=== PATIENT | male | born 1940 | race Caucasian/White ===

== ENCOUNTER → 2017-01-12 | Outpatient (CLI) | payer MEDICARE, MEDICAID ==
[~2017-01-12] MED LIST: ALBUTEROL SULFATE 2.5 MG/0.5 ML INH NEB SOLN INH ONE; ASPI81TA85 PO; D5W 1,000 ML IV SCH; EPINEPHrine 1MG/10ML SYRINGE 1.5IN As Ordered ONE; FLOM5CAP PO; HYDR-3719 PO; LIDOCAINE 1% MDV 20ML VIAL As Ordered ONE; LIDOCAINE 4% INJ 5 ML AMP As Ordered ONE; LIDOCAINE 4% INJ 5 ML AMP INH ONE; LIDOCAINE VISCOUS 2% SOLN 15ML UDC As Ordered ONE; LOPR1TAB6 PO; MIDAZOLAM INJ 2 MG/2 ML VIAL (J2250) As Ordered ONE; MIDO5TA PO; NEUR300C PO; OMEP40CA2 PO; TRAZO50TA FT; XANA0.5T PO; fentaNYL 100 MCG/2 ML INJECTION (J3010) As Ordered ONE
--- NOTE | 2017-01-12 08:50 | RO ---
DATE OF PROCEDURE: 01/12/2017 PREOPERATIVE DIAGNOSIS: Abnormal PET CT, adenopathy. POSTOPERATIVE DIAGNOSIS: Abnormal PET CT, adenopathy. PROCEDURE: Bronchoscopy with micro and cytology brushing, endobronchial biopsy, and endobronchial ultrasound with fine-needle aspiration. SURGEON: Dr. Romario Zhu SPORTS PHYSICIAN: None. ANESTHESIA: Versed 12 mg IV, fentanyl 75 mg IV, lidocaine 325 mg topical. FINDINGS: Abnormal left mainstem with enlarged subcarinal node. DESCRIPTION OF PROCEDURE: After informed consent was reviewed in the preoperative area, the patient was brought back to the outpatient procedure suite. A time-out was performed with two patient identifiers, identifying correct site and correct procedure. The patient was anesthetized with a Xylocaine Neb. This was followed by a spray of Cetacaine into the laryngeal opening. After sedation was adequate, the bronchoscope was advanced into the airway with anesthetization of the airways with 1% lidocaine. The trachea was midline. The wagner was fairly splayed. There was an obvious abnormal left mainstem with a large amount of what appeared to be inflamed granulation tissue. I could not see the suture line and the inflamed tissue approached the wagner on the left. The right mainstem bronchus was normal. RB 1-10 was normal and without endobronchial lesions except for some banding and pitting. The bronchoscope was then placed in the left mainstem and a cytology brush was performed. This was followed by a micro brush. I then performed endobronchial biopsies. After endobronchial biopsies were performed, the endobronchial ultrasound was then inserted into the left mainstem pointing towards the wagner. There was a mass-like lesion there and therefore samples were taken under ultrasound. After adequate core sampling was performed, the endobronchial ultrasound was then removed. Hemostasis was then assured with repeat bronchoscopy. There were no observed complications. A post chest x-ray is pending. [facility]
[2017-01-12 09:10] VITALS: BP 135/71
--- NOTE | 2017-01-12 09:17 | REP ---
Clinical: Status post bronchoscopy. Comparison: None. Findings: There is elevation of the left hemidiaphragm and complete opacification of the left hemithorax with underlying postsurgical changes noted. These findings may represent chronic change. The right hemithorax is well-aerated and clear. No obvious pneumothorax. No obvious right pleural effusion. Skeletal structures intact. Impression: Likely chronic postsurgical changes involving the left hemithorax ipsilateral mediastinal shift. Right hemithorax is well-aerated and clear. Signed by Jayme Dinero MD 01/12/2017 09:09 A
== END | disposition home or self-care (01) ==
LOC: M OPP 06:54
PROVIDERS: ATTEND Internal Medicine Pulmonary Disease
DX: R59.0 Localized enlarged lymph nodes (principal); Z85.118 Personal history of other malignant neoplasm of bronchus and lung; C32.0 Malignant neoplasm of glottis; I10 Essential (primary) hypertension; N40.0 Benign prostatic hyperplasia without lower urinary tract symptoms; K21.9 Gastro-esophageal reflux disease without esophagitis; R13.19 Other dysphagia; J44.9 Chronic obstructive pulmonary disease, unspecified; G57.91 Unspecified mononeuropathy of right lower limb; Z96.3 Presence of artificial larynx; Z87.891 Personal history of nicotine dependence; Z79.899 Other long term (current) drug therapy
CPT/HCPCS: 31623; 31652; 71010; 87071; 87077; 87186; 88104; 88172; 88173; 88305; 88313; 94640; 94760; J2250; J3010

== ENCOUNTER → 2017-05-05 | Outpatient (CLI) | payer MEDICARE, MEDICAID ==
[~2017-05-05] MED LIST changes: -ALBUTEROL SULFATE 2.5 MG/0.5 ML INH NEB SOLN INH ONE; -D5W 1,000 ML IV SCH; -EPINEPHrine 1MG/10ML SYRINGE 1.5IN As Ordered ONE; -LIDOCAINE 1% MDV 20ML VIAL As Ordered ONE; -LIDOCAINE 4% INJ 5 ML AMP As Ordered ONE; -LIDOCAINE 4% INJ 5 ML AMP INH ONE; -LIDOCAINE VISCOUS 2% SOLN 15ML UDC As Ordered ONE; -MIDAZOLAM INJ 2 MG/2 ML VIAL (J2250) As Ordered ONE; -fentaNYL 100 MCG/2 ML INJECTION (J3010) As Ordered ONE
--- NOTE | 2017-05-05 14:19 | REP ---
More inferior are the CT of the chest without IV contrast: There are no comparison chest CTs. There is a comparison plain film study dated 01/12 2017. The patient indicates he has a history of left lung carcinoma and left lung surgery. There are multiple surgical clips in the left hilus and there is no visible left lung parenchyma, compatible with total left pneumonectomy. 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 There is no mediastinal shift. There is a 12 x 7 mm nodule along the margin of the major fissure on the right on the image 70. In the absence of IV contrast the study is insensitive for hilar adenopathy. No mediastinal adenopathy is identified. No axillary adenopathy. The unenhanced thoracic aorta is unremarkable except for occasional calcified atheroma. Cardiac size is normal. In the upper abdomen there is no adrenal mass. Visualized portions of the unenhanced pancreas, gallbladder, liver and spleen are unremarkable. Impression: Findings are compatible with total left pneumonectomy. There is a focal nodular density at the along the major fissure on the right inferiorly, on image 70. There are no other nodules or masses. No infiltrates or effusions. Signed by Lupillo Gr MD 05/05/2017 02:11 P
== END ==
LOC: M RAD 13:01
PROVIDERS: ATTEND Internal Medicine Pulmonary Disease
DX: R91.8 Other nonspecific abnormal finding of lung field (principal)